=== PATIENT | female | born 1985 | race Native Hawaiian/Other Pacific Islander ===

== ENCOUNTER 2017-03-12 16:45 | Emergency (ER) | payer OTHER ==
[~2017-03-12] VITALS: Ht 157.5 cm; Wt 79.8 kg
[2017-03-12 16:43] VITALS: TEMP 98.5
[2017-03-12 17:32] VITALS: BP 133/65
== END 2017-03-12 17:34 | disposition home or self-care (01) ==
LOC: ED 16:45
PROC: 0H9GXZZ Drainage of Left Hand Skin, External Approach (ICD-10-PCS; principal; 2017-03-12)
DX: L02.512 Cutaneous abscess of left hand (principal); T63.301A Toxic effect of unspecified spider venom, accidental (unintentional), initial encounter; Y92.89 Other specified places as the place of occurrence of the external cause
CPT/HCPCS: 90471; 90715; 99283

== ENCOUNTER 2022-12-04 10:26 | Emergency (ER) | payer OTHER ==
[~2022-12-04] VITALS: Ht 162.6 cm; Wt 72.6 kg
[2022-12-04 10:32] VITALS: BP 147/96; TEMP 98.9
[2022-12-04 11:34] LABS: PLATELET COUNT 425 K/uL (152-353)
[2022-12-04 11:40] LABS: POTASSIUM 3.8 mmol/L (3.6-5.2)
== END 2022-12-04 15:05 | disposition home or self-care (01) ==
LOC: ED 10:26
PROVIDERS: Internal Medicine
DX: S39.011A Strain of muscle, fascia and tendon of abdomen, initial encounter (principal); X58.XXXA Exposure to other specified factors, initial encounter; Y92.89 Other specified places as the place of occurrence of the external cause
CPT/HCPCS: 36415; 80053; 81002; 81025; 85027; 96374; 96375; 99284; J1885; J2405; Q9963